=== PATIENT | male | born 1980 | race Caucasian/White ===

== ENCOUNTER 2024-11-22 08:03 | Emergency (ER) | payer BC ==
[~2024-11-22] VITALS: Ht 180.3 cm; Wt 83.9 kg
[2024-11-22] MEDS ORDERED: Ketorolac Tromethamine 15mg Vial IV ONE (10:35)
== END 2024-11-22 11:33 | disposition home or self-care (01) ==
LOC: ER 08:03
DX: F41.9 Anxiety disorder, unspecified (principal); M54.2 Cervicalgia; G47.30 Sleep apnea, unspecified
CPT/HCPCS: 93005; 93010; 96374; 99283-25; J1885